=== PATIENT | female | born 1950 | race Caucasian/White ===

== ENCOUNTER → 2017-12-04 | Outpatient (CLI) | payer OTHER ==
[~2017-12-04] MED LIST: AMOCLA500 PO; ASCO500; CALGLU500; HYDACE5 PO; LISI20; MULVITMIND; PROACE100 PO
== END ==
LOC: LAB SHORT 13:41 → LAB 13:41
DX: N39.0 Urinary tract infection, site not specified (principal)
CPT/HCPCS: 87077; 87086; 87186

== ENCOUNTER → 2021-03-29 | Outpatient (CLI) | payer OTHER ==
[2021-03-29 15:37] LABS: BASOPHILS ABSOLUTE AUTO 0.04 K/mm3 (0.00-0.23); BASOPHILS PERCENT AUTO 1 % (0-2); EOSINOPHILS ABSOLUTE AUTO 0.23 K/mm3 (0.00-0.68); EOSINOPHILS PERCENT AUTO 5 % (0-6); Hematocrit 38.2 % (33.0-51.0); IMMATURE GRAN ABSOLUTE AUTO 0.01 K/mm3 (0.00-0.10); IMMATURE GRAN PERCENT AUTO 0 % (0-1); LYMPHOCYTES PERCENT AUTO 35 % (21-46); MONOCYTES ABSOLUTE AUTO 0.56 K/mm3 (0.16-1.47); MONOCYTES PERCENT AUTO 11 % (4-13); Mean Corpuscular HGB 27.6 pg (26.0-34.0); Mean Corpuscular HGB Conc 31.4 g/dL (31.5-36.5); Mean Corpuscular Volume 88 fL (80-100); Mean Platelet Volume 11.7 fL (9.1-12.4); NEUTROPHILS ABSOLUTE AUTO 2.46 K/mm3 (1.96-9.15); NEUTROPHILS PERCENT AUTO 48 % (41-73); Platelet Count 255 K/mm3 (150-400); RDW Coefficient Variation 14.4 % (11.7-14.2); RDW Standard Deviation 45.9 fL (35.1-46.3); Red Blood Cell Count 4.34 M/mm3 (3.80-5.20)
[2021-03-29 15:43] LABS: Alanine Aminotransfer (ALT/SGP 23 U/L (12-78); Albumin, Blood 3.6 g/dL (3.4-5.0); Albumin/Globulin Ratio 1.2 (0.8-1.8); Alk Phos 80 U/L (50-136); Anion Gap 6 mmol/L (6-16); Aspartate Aminotrans (AST/SGOT 19 U/L (12-37); Bilirubin, Total 0.7 mg/dL (0.1-1.0); Blood Urea Nitrogen 11 mg/dL (8-24); Bun/Creatinine Ratio 13.2 (12.0-20.0); CHOL/HDL RATIO 2.8; CO2, Blood 26 mmol/L (21-32); Chloride, Blood 110 mmol/L (98-108); Cholesterol 165 mg/dL (50-200); Creatinine, Blood 0.84 mg/dL (0.40-1.00); Ferritin, Serum 42 ng/mL (8-252); Globulin, Blood 3.1 g/dL (2.2-4.0); Glomerular Filtration Rate >60 (60-); Glucose, Blood 91 mg/dL (70-99); HDL Cholesterol 60 mg/dL (>39); Iron Serum 60 ug/dL (50-170); LDL/HDL RATIO 1.5; Low Density Lipoprotein Chol 89 mg/dL (0-110); Percent Saturation 21.1 % (15.0-50.0); Potassium, Blood 4.3 mmol/L (3.5-5.5); Sodium, Blood 142 mmol/L (136-145); Total Iron Binding Capacity 284 ug/dL (250-450); Total Protein, Blood 6.7 g/dL (6.4-8.2); Triglycerides 78 mg/dL (30-160); Very Low Density Lipoprot Chol 15 mg/dL (6-32)
== END | disposition home or self-care (01) ==
LOC: LAB SHORT 09:15 → LAB 09:15
PROVIDERS: Hospitalist
DX: E78.00 Pure hypercholesterolemia, unspecified (principal); D50.9 Iron deficiency anemia, unspecified; I10 Essential (primary) hypertension
CPT/HCPCS: 80053; 80061; 82728; 83540; 83550; 85025

== ENCOUNTER → 2021-04-27 | Outpatient (CLI) | payer OTHER | END | disposition home or self-care (01) | LOC: LAB SHORT 15:46 | DX: D48.5 Neoplasm of uncertain behavior of skin (principal) | CPT/HCPCS: 88305 ==

== ENCOUNTER 2022-05-05 08:16 | Day surgery (SDC) | payer OTHER ==
[~2022-05-05] VITALS: Ht 160 cm; Wt 78.6 kg
[2022-05-05] MEDS ORDERED: ASPI81CH PO (08:35)
[2022-05-05] MEDS ORDERED: AMLO5 PO (08:35)
[2022-05-05] MEDS ORDERED: LOSA50 PO (08:35)
[2022-05-05] MEDS ORDERED: METO100ER PO (08:35)
[2022-05-05] MEDS ORDERED: ZOCOR20 MG PO (08:36)
== END 2022-05-05 09:55 | disposition home or self-care (01) ==
LOC: ORSCSDS 08:16
PROVIDERS: Ophthalmology
PROC: 08RK3JZ Replacement of Left Lens with Synthetic Substitute, Percutaneous Approach (ICD-10-PCS; principal; 2022-05-05 09:30)
DX: H25.12 Age-related nuclear cataract, left eye (principal); I10 Essential (primary) hypertension; E78.5 Hyperlipidemia, unspecified; K21.9 Gastro-esophageal reflux disease without esophagitis; F41.9 Anxiety disorder, unspecified; Z79.82 Long term (current) use of aspirin; Z79.899 Other long term (current) drug therapy
CPT/HCPCS: J2001; J2250; J2405; J3010; J3301; V2632

== ENCOUNTER → 2023-02-08 | Outpatient (CLI) | payer OTHER ==
[~2023-02-08] MED LIST changes: +AMLO5 PO; +ASPI81CH PO; +LOSA50 PO; +METO100ER PO; +MYRBETRIQ25 MG PO; +ZOCOR20 MG PO
[2023-02-08 15:41] LABS: BASOPHILS ABSOLUTE AUTO 0.05 K/mm3 (0.00-0.23); BASOPHILS PERCENT AUTO 1 % (0-2); EOSINOPHILS ABSOLUTE AUTO 0.23 K/mm3 (0.00-0.68); EOSINOPHILS PERCENT AUTO 4 % (0-6); Hematocrit 38.8 % (33.0-51.0); Hemoglobin 12.5 g/dL (11.5-16.0); IMMATURE GRAN ABSOLUTE AUTO 0.02 K/mm3 (0.00-0.10); IMMATURE GRAN PERCENT AUTO 0 % (0-1); LYMPHOCYTES ABSOLUTE AUTO 1.83 K/mm3 (0.84-5.20); LYMPHOCYTES PERCENT AUTO 34 % (21-46); MONOCYTES PERCENT AUTO 9 % (4-13); Mean Corpuscular HGB 28.7 pg (26.0-34.0); Mean Corpuscular HGB Conc 32.2 g/dL (31.5-36.5); Mean Corpuscular Volume 89 fL (80-100); Mean Platelet Volume 10.9 fL (9.1-12.4); NEUTROPHILS ABSOLUTE AUTO 2.82 K/mm3 (1.96-9.15); NEUTROPHILS PERCENT AUTO 52 % (41-73); Platelet Count 241 K/mm3 (150-400); RDW Coefficient Variation 13.4 % (11.7-14.2); Red Blood Cell Count 4.36 M/mm3 (3.80-5.20); White Blood Cell Count 5.45 K/mm3 (4.00-11.30)
[2023-02-08 16:05] LABS: Alanine Aminotransfer (ALT/SGP 18 U/L (12-78); Albumin, Blood 3.9 g/dL (3.4-5.0); Albumin/Globulin Ratio 1.3 (0.8-1.8); Alk Phos 76 U/L (50-136); Anion Gap 6 mmol/L (6-16); Aspartate Aminotrans (AST/SGOT 20 U/L (12-37); Bilirubin, Total 0.5 mg/dL (0.1-1.0); Blood Urea Nitrogen 11 mg/dL (8-24); Bun/Creatinine Ratio 15.1 (12.0-20.0); CHOL/HDL RATIO 2.3; CO2, Blood 28 mmol/L (21-32); Calcium, Blood 9.2 mg/dL (8.5-10.1); Chloride, Blood 107 mmol/L (98-108); Cholesterol 187 mg/dL (50-200); Creatinine, Blood 0.73 mg/dL (0.40-1.00); Ferritin, Serum 55 ng/mL (8-252); Globulin, Blood 3.1 g/dL (2.2-4.0); Glomerular Filtration Rate 86 (60-); Glucose, Blood 101 mg/dL (70-99); HDL Cholesterol 83 mg/dL (>39); Iron Serum 70 ug/dL (50-170); LDL/HDL RATIO 1.1; Low Density Lipoprotein Chol 92 mg/dL (0-110); Potassium, Blood 4.4 mmol/L (3.5-5.5); Sodium, Blood 141 mmol/L (136-145); Total Iron Binding Capacity 292 ug/dL (250-450); Triglycerides 60 mg/dL (30-160); Very Low Density Lipoprot Chol 12 mg/dL (6-32)
== END | disposition home or self-care (01) ==
LOC: LAB SHORT 13:24 → LAB 13:24
PROVIDERS: Hospitalist
DX: E78.00 Pure hypercholesterolemia, unspecified (principal); I10 Essential (primary) hypertension; R25.2 Cramp and spasm
CPT/HCPCS: 80053; 80061; 82728; 83540; 83550; 84443; 85025

== ENCOUNTER → 2023-05-16 | Outpatient (CLI) | payer OTHER | END | disposition home or self-care (01) | LOC: LAB SHORT 13:22 → LAB 13:22 | DX: R30.0 Dysuria (principal) | CPT/HCPCS: 87077; 87086; 87186 ==

== ENCOUNTER → 2023-08-16 | Outpatient (CLI) | payer OTHER | LOC: LAB 14:00 → LAB SHORT 14:00 | DX: N30.00 Acute cystitis without hematuria (principal) | CPT/HCPCS: 87077; 87086; 87186 ==

== ENCOUNTER 2023-11-29 08:33 | Day surgery (SDC) | payer OTHER ==
[~2023-11-29] VITALS: Ht 159 cm; Wt 82.6 kg
[2023-11-29] VITALS (16 sets, daily range): BP systolic 109–149; BP diastolic 53–73
[~2023-11-29 08:33] MED LIST changes: +AEREDS PO; +Acetaminophen 500 MG Tab PO SCH; +C COMPLEX1000 M1 PO; +CeFAZolin Sodium 2,000 MG in NS 100 ML IV SCH; +Chlorhexidine Mouth Care 15 ML UDC MT SCH; +Colace100 MG PO; +ERGO400 PO; +GLAUCOMA EYE DROPS; -LOSA50 PO; +LOSARTAN POTAS100 M1 PO; +Lactated Ringer's 1,000 ML IV SCH; +OxyCODONE HCL 10 MG TABCR PO SCH; +Ropivacaine 0.5% HCl/Pf 67.75 MG,EPINEPHrine HCL 0.25 MG,Ketorolac Tromethamine 15 MG,C... INFIL SCH; +Simvastatin10 MG PO; +Tranexamic Acid 100 ML IV SCH; +Vancomycin HCL 1,000 MG in NS 100 ML IV SCH; -ZOCOR20 MG PO
[2023-11-29] MEDS ORDERED: LATANOPROST2.5 M3 BOTHEYES (09:16)
[2023-11-29] MEDS ORDERED: PRESERVISION A1 EAC1 PO (09:23)
[2023-11-29] MEDS ORDERED: VITAMIN D350 MC3 PO (09:30)
[2023-11-29] MEDS ORDERED: Vitamin B-12100 MCG PO (09:36)
[2023-11-29] MEDS ORDERED: AMLO5 PO (09:37)
--- NOTE | 2023-11-29 10:20 | NUR ---
History, Chart, Medications and Allergies reviewed before start of procedure. Patient up to Ambulate independently. Gait steady. Pre-Op teaching done. Pt verbalizes understanding. Patient confirms NPO status and agrees with scheduled surgery. Patient reports completing Chlorhexadine shower X6 prior to admission to hospital. Lungs clear T/O to Auscultation. Patient States Post-Procedure ride home has been arranged.
[2023-11-29] MEDS ORDERED: OxyCODONE HCL 5 MG TAB PO PRN ×2 (10:40→11:10)
[2023-11-29] MEDS ORDERED: Promethazine HCl 25 MG Tab PO PRN (10:45)
[2023-11-29] MEDS ORDERED: DiphenhydrAMINE HCL 25 MG Cap PO PRN (10:45)
[2023-11-29] MEDS ORDERED: Bisacodyl 10 MG Supp PR PRN (10:45)
[2023-11-29] MEDS ORDERED: Magnesium Hydroxide Conc 10 ML UDC PO PRN (10:50)
[2023-11-29] MEDS ORDERED: HYDROmorphone HCl/Pf 1MG SYR IV PRN (10:50)
[2023-11-29] MEDS ORDERED: Ondansetron HCl 2 MG / ML 2ML Vial IV PRN (10:50)
[2023-11-29] MEDS ORDERED: Lactated Ringer's 1,000 ML IV SCH (10:50)
[2023-11-29] MEDS ORDERED: Metoclopramide HCl 5MG / ML 2ML Vial IV PRN (10:50)
[2023-11-29] MEDS ORDERED: propofoL 100 ML IV ONE (10:51)
[2023-11-29] MEDS ORDERED: Midazolam HCl 1MG / ML 2ML Vial ONE (10:52)
[2023-11-29] MEDS ORDERED: propofoL 20 ML IV ONE (10:59)
[2023-11-29] MEDS ORDERED: ePHEDrine Sulfate 50 MG/ML 1ML Injection ONE (11:43)
[2023-11-29] MEDS ORDERED: Phenylephrine HCl 100 MCG/ML-NS 10MLSYR (1MG/10ML) ONE (12:00)
[2023-11-29] MEDS ORDERED: Ketorolac Tromethamine 30mg Vial ONE (13:33)
--- NOTE | 2023-11-29 14:00 | NUR ---
PATIENT ARRIVED FROM PACU TODAY. POD 0 RIGHT TOTAL KNEE PATIENT IS A&OX4. SHE DID HAVE A SPINAL DURING THE PROCEDURE BUT PATIENT REPORTS FULL SENSATION TO ALL EXTREMITIES. SHE DENIES NUMBNESS OR TINGLING THOUGHOUT ALL EXTREMITIES. HER RIGHT KNEE HAS AN ALTA WRAP WITH GAUZE THAT IS C/D/I WITH POLAR PACK IN PLACE. SHE IS TOLERATING SMALL AMOUNTS OF PO INTAKE. ATTENDS ARE IN PLACE PER PATIENT STATED "I TEND TO LEAK WITHOUT KNOWING". PATIENT IS CURRENTLY LAYING IN BED WITH CALL LIGHT IN REACH.
--- NOTE | 2023-11-29 15:16 | NUR ---
SHIFT SUMMARY: POD 0 RIGHT TOTAL KNEE PATIENT IS A&OX4. VS ARE WNL AND IS ON RA. PATIENT HAS DENIED PAIN SO FAR THIS SHIFT. SHE IS ABLE TO WIGGLE ALL FINGERS AND TOES WHEN ASKED. PATIENT HAS HAD INTERMITTENT NAUSEA BUT HAS BEEN MANAGED SO FAR THIS SHIFT WITH IV ZOFRAN AND REGLAN PER EMAR. HER RIGHT KNEE HAS AN ALTA WRAP AND GAUZE THAT IS C/D/I WITH POLAR PACK IN PLACE. PATIENT IS TOLERATING SMALL AMOUNTS OF PO INTAKE. SHE IS LAYING IN BED WITH CALL LIGHT IN REACH AND FAMILY AT BEDSIDE.
[2023-11-29] MEDS ORDERED: Acetaminophen 500 MG Tab PO SCH (16:00)
--- NOTE | 2023-11-29 16:01 | NUR ---
PATIENT DOES REPORT SLIGHT NUMBNESS IN HER RIGHT LEG. SHE IS ABLE TO WIGGLE ALL FINGERS AND TOES WHEN ASKED. PEDAL PULSES ARE STRONG. PATIENT IS LAYING IN BED WITH CALL LIGHT IN REACH.
[2023-11-29] MEDS ORDERED: Ketorolac Tromethamine 15mg Vial IV SCH (18:00)
[2023-11-29] MEDS ORDERED: NS 100 ML IV ONE (18:23)
[2023-11-29] MEDS ORDERED: CeFAZolin Sodium 2,000 MG in NS 100 ML IV SCH (19:15)
[2023-11-29] MEDS ORDERED: Docusate Sodium 100 MG Cap PO SCH (21:00)
[2023-11-29] MEDS ORDERED: Atorvastatin 10 MG Tab PO SCH (21:00)
[2023-11-29] MEDS ORDERED: AmLODIPine Besylate 5 MG Tab PO SCH (21:00)
[2023-11-29] MEDS ORDERED: Latanoprost 0.005% Opth Soln 2.5 ML BOTHEYES SCH (21:00)
[2023-11-29] MEDS ORDERED: Losartan Potassium 50 MG Tab PO SCH (21:00)
[2023-11-29] MEDS ORDERED: Beta-Carotene (A) W-C & E/Min 1 Tab PO SCH (21:00)
[2023-11-29] MEDS ORDERED: Vancomycin HCL 1,000 MG in NS 100 ML IV SCH (22:00)
[2023-11-29] MEDS ORDERED: NS 250 ML IV PRN (22:50)
[2023-11-30 03:50] VITALS: BP 120/61
[2023-11-30 04:33] LABS: BASOPHILS ABSOLUTE AUTO 0.01 K/mm3 (0.00-0.23); BASOPHILS PERCENT AUTO 0 % (0-2); EOSINOPHILS PERCENT AUTO 0 % (0-6); Hematocrit 28.7 % (33.0-51.0); Hemoglobin 9.3 g/dL (11.5-16.0); IMMATURE GRAN ABSOLUTE AUTO 0.03 K/mm3 (0.00-0.10); IMMATURE GRAN PERCENT AUTO 0 % (0-1); LYMPHOCYTES ABSOLUTE AUTO 1.29 K/mm3 (0.84-5.20); LYMPHOCYTES PERCENT AUTO 9 % (21-46); MONOCYTES ABSOLUTE AUTO 1.81 K/mm3 (0.16-1.47); MONOCYTES PERCENT AUTO 12 % (4-13); Mean Corpuscular HGB 28.3 pg (26.0-34.0); Mean Corpuscular HGB Conc 32.4 g/dL (31.5-36.5); Mean Corpuscular Volume 87 fL (80-100); Mean Platelet Volume 10.2 fL (9.1-12.4); NEUTROPHILS ABSOLUTE AUTO 11.46 K/mm3 (1.96-9.15); NEUTROPHILS PERCENT AUTO 79 % (41-73); Platelet Count 174 K/mm3 (150-400); Red Blood Cell Count 3.29 M/mm3 (3.80-5.20)
[2023-11-30 04:59] LABS: Bun/Creatinine Ratio 20.8 (12.0-20.0); Calcium, Blood 8.3 mg/dL (8.5-10.1); Creatinine, Blood 0.63 mg/dL (0.40-1.00); Magnesium, Blood 1.8 mg/dL (1.6-2.4); Potassium, Blood 4.3 mmol/L (3.5-5.5)
--- NOTE | 2023-11-30 05:27 | NUR ---
SHIFT SUMMARY POD1 R TKA. DRESSING IS C/D/I. PT REPORTS FULL SENSATION IN RLE, BUT THAT IT "FEELS LIKE IT JUST WONT HOLD MY WEIGHT". PT UNABLE TO AMBULATE HER RLE GIVES OUT WITH ANY WEIGHT ON IT. VSS. MEDICATED FOR PAIN WITH PRN'S AND SCHEDULED T/O THE NIGHT. PT SLEPT POORLY T/O THE NIGHT. MULTIPLE INCONTINENT VOIDS NOTED, BRIEF CHANGED PRN. PLAN FOR SURGEON TO PERFORM A DRESSING CHANGE THIS AM, WORK WITH PHYSICAL THERAPY, AND POSSIBLY D/C HOME IF RLE STRENGTH IMPROVES.
[2023-11-30 07:29] VITALS: BP 108/57
--- NOTE | 2023-11-30 07:44 | NUR ---
11/30/23 0744 Eun Ascencio VERIFICATIONS: EDIT CHART.
--- NOTE | 2023-11-30 08:19 | NUR ---
A&OX4, REPORTS PAIN IS "GOOD" THIS AM, DR. ALTMAN HERE TO SEE PT, DRESSING CHANGED, WOUND CARE/DRESSING EDUCATION DONE BY DR. ALTMAN, PT REPORTS HAVING SOME MILD WEAKNESS ON RLE, PT EXAMINED BY DR. ALTMAN, PT ASSISTED TO RECLINER CHAIR, TOLERATED FAIRLY WELL WITH WALKER AND 1 PERSON STANDBY ASSIST.
[2023-11-30] MEDS ORDERED: CEFU500T30 PO (08:24)
[2023-11-30] MEDS ORDERED: ASPI81CH PO (08:26)
[2023-11-30] MEDS ORDERED: Amoxicillin/Clavulanate K 875 MG Tab PO SCH (09:00)
[2023-11-30] MEDS ORDERED: Ascorbic Acid 500 MG Tab PO SCH (09:00)
[2023-11-30] MEDS ORDERED: Cyanocobalamin 100 MCG Tab PO SCH (09:00)
[2023-11-30] MEDS ORDERED: Aspirin 81 MG Chew PO SCH (09:00)
[2023-11-30] MEDS ORDERED: Cholecalciferol 1000 Unit Tablet (=25MCG) PO SCH (09:00)
[2023-11-30] MEDS ORDERED: Cefuroxime Axetil 250 MG Tab PO SCH ×2 (09:00)
[2023-11-30] MEDS ORDERED: Metoprolol Succinate 50 MG TABCR PO SCH (09:00)
--- NOTE | 2023-11-30 09:24 | NUR ---
WORKING WITH PHYSICAL THERAPY.
[2023-11-30] MEDS ORDERED: PROM25 PO (10:37)
[2023-11-30] MEDS ORDERED: OXYC5 PO (10:37)
== END 2023-11-30 12:50 | disposition home or self-care (01) ==
LOC: ORSCMMR 08:33 → ORD 10:45 → SURS 13:44 → ORSCMMR 11-30 12:50
PROVIDERS: Orthopaedic Surgery
PROC: 0SRC0JA Replacement of Right Knee Joint with Synthetic Substitute, Uncemented, Open Approach (ICD-10-PCS; principal; 2023-11-29 10:45)
DX: M17.0 Bilateral primary osteoarthritis of knee (principal); I10 Essential (primary) hypertension; E78.00 Pure hypercholesterolemia, unspecified; Z79.899 Other long term (current) drug therapy
CPT/HCPCS: 36415; 73560-RT; 80048; 83735; 85025; 97110; 97116; 97162; A9270; C1713; C1776; J0171; J0690; J0735; J1885; J2250; J2371; J2405; J2704; J2765; J2795; J3370; J7050; J7120

== ENCOUNTER → 2024-04-15 | Outpatient (CLI) | payer OTHER ==
[~2024-04-15] MED LIST changes: -Acetaminophen 500 MG Tab PO SCH; +CEFU500T30 PO; -CeFAZolin Sodium 2,000 MG in NS 100 ML IV SCH; -Chlorhexidine Mouth Care 15 ML UDC MT SCH; +LATANOPROST2.5 M3 BOTHEYES; -Lactated Ringer's 1,000 ML IV SCH; +OXYC5 PO; -OxyCODONE HCL 10 MG TABCR PO SCH; +PRESERVISION A1 EAC1 PO; +PROM25 PO; -Ropivacaine 0.5% HCl/Pf 67.75 MG,EPINEPHrine HCL 0.25 MG,Ketorolac Tromethamine 15 MG,C... INFIL SCH; -Tranexamic Acid 100 ML IV SCH; +VITAMIN D350 MC3 PO; -Vancomycin HCL 1,000 MG in NS 100 ML IV SCH; +Vitamin B-12100 MCG PO
[2024-04-15 15:17] LABS: BASOPHILS ABSOLUTE AUTO 0.05 K/mm3 (0.00-0.23); BASOPHILS PERCENT AUTO 1 % (0-2); EOSINOPHILS ABSOLUTE AUTO 0.24 K/mm3 (0.00-0.68); EOSINOPHILS PERCENT AUTO 6 % (0-6); Hematocrit 35.4 % (33.0-51.0); Hemoglobin 11.5 g/dL (11.5-16.0); IMMATURE GRAN ABSOLUTE AUTO 0.01 K/mm3 (0.00-0.10); IMMATURE GRAN PERCENT AUTO 0 % (0-1); LYMPHOCYTES ABSOLUTE AUTO 1.36 K/mm3 (0.84-5.20); LYMPHOCYTES PERCENT AUTO 33 % (21-46); MONOCYTES ABSOLUTE AUTO 0.48 K/mm3 (0.16-1.47); MONOCYTES PERCENT AUTO 12 % (4-13); Mean Corpuscular HGB 27.7 pg (26.0-34.0); Mean Corpuscular HGB Conc 32.5 g/dL (31.5-36.5); Mean Corpuscular Volume 85 fL (80-100); Mean Platelet Volume 10.6 fL (9.1-12.4); NEUTROPHILS ABSOLUTE AUTO 2.02 K/mm3 (1.96-9.15); NEUTROPHILS PERCENT AUTO 49 % (41-73); Platelet Count 229 K/mm3 (150-400); RDW Coefficient Variation 14.6 % (11.7-14.2); RDW Standard Deviation 45.1 fL (35.1-46.3); Red Blood Cell Count 4.15 M/mm3 (3.80-5.20); White Blood Cell Count 4.16 K/mm3 (4.00-11.30)
[2024-04-16 02:17] LABS: Albumin, Blood 3.6 g/dL (3.4-5.0); Albumin/Globulin Ratio 1.2 (0.8-1.8); Bilirubin, Total 0.5 mg/dL (0.1-1.0); Bun/Creatinine Ratio 19.9 (12.0-20.0); Calcium, Blood 8.7 mg/dL (8.5-10.1); Creatinine, Blood 0.7 mg/dL (0.40-1.00); Globulin, Blood 2.9 g/dL (2.2-4.0); Total Protein, Blood 6.5 g/dL (6.4-8.2)
== END | disposition home or self-care (01) ==
LOC: LAB SHORT 13:48 → LAB 13:48
PROVIDERS: Hospitalist
DX: M05.741 Rheumatoid arthritis with rheumatoid factor of right hand without organ or systems involvement (principal)
CPT/HCPCS: 80053; 83735; 85025

== ENCOUNTER → 2025-04-02 | Outpatient (CLI) | payer OTHER | LOC: LAB 17:27 → LAB SHORT 17:27 | DX: N30.01 Acute cystitis with hematuria (principal) | CPT/HCPCS: 87086 ==

== ENCOUNTER → 2025-04-22 | Outpatient (CLI) | payer OTHER | LOC: LAB SHORT 12:12 → LAB 12:12 | DX: N30.01 Acute cystitis with hematuria (principal) | CPT/HCPCS: 87086 ==